=== PATIENT | female | born 1975 | race Caucasian/White ===

== ENCOUNTER 2017-06-30 19:45 | Emergency (ER) | payer MEDICAID ==
[~2017-06-30] VITALS: Ht 167.6 cm; Wt 70.2 kg
[~2017-06-30 19:45] MED LIST: ALB0.5UD NEB; ALBU18HF2 IH; ALBU8.5H8 INH; ATR0.5NEB NEB; AZIT-63 PO; AZIT250T PO; DIAZ-351 PO; DIAZ5TAB PO; DIL100C PO; FLO110IN IH; FLUO20CA39 PO; GUAI120015 PO; HYDR1TAB PO; IBUP-1986 PO; KEP500T PO; LORA1TAB PO; NAPR500T6 PO; OMEP20TA23 PO; ONDA8TAB6 PO; PHEN30CA PO; PHEN50TA PO; PRED10TA PO; PSEU-259 PO; PSEU120T55 PO; RISP1TAB13 PO; TIOT18CA7 IH; TRIH2TAB3 PO; ZOLP12.531 PO; fioricet PO
[2017-06-30] MEDS ORDERED: levetiracetam 250mg tablet PO ONE (21:00)
[2017-06-30 21:17] LABS: BASOPHILS # (AUTO) 0.1 X10'3 (0-0.2); BASOPHILS % (AUTO) 0.6 % (0-1); EOSINOPHILS # (AUTO) 0.3 X10'3 (0-0.9); EOSINOPHILS % (AUTO) 2.1 % (0-6); HEMATOCRIT 33.2 % (35.0-45.0); HEMOGLOBIN 11.4 g/dl (12.0-16.0); LYMPHOCYTES # (AUTO) 3.2 X10'3 (1.1-4.8); LYMPHOCYTES % (AUTO) 26.1 % (21-51); MEAN CORPUSCULAR HEMOGLOBIN 31.6 PG (27.0-31.0); MEAN CORPUSCULAR HGB CONC 34.2 % (33.0-36.5); MEAN CORPUSCULAR VOLUME 92.3 FL (78-98); MEAN PLATELET VOLUME 6.9 FL (7.4-10.4); MONOCYTES # (AUTO) 0.8 X10'3 (0-0.9); MONOCYTES % (AUTO) 6.7 % (2-12); NEUTROPHILS # (AUTO) 7.9 X10'3 (1.8-7.7); NEUTROPHILS % (AUTO) 64.5 % (42-75); PLATELET COUNT 411 X10'3 (140-440); RED CELL DISTRIBUTION WIDTH 14.9 % (11.5-14.5); WHITE BLOOD COUNT 12.3 X10'3 (4.5-11.0)
[2017-06-30 21:33] LABS: ALANINE AMINOTRANSFERASE 22 U/L (12-78); ALBUMIN 3.3 G/DL (3.4-5.0); ALBUMIN/GLOBULIN RATIO 1.1 (1.1-1.5); ALKALINE PHOSPHATASE 71 IU/L (46-116); ANION GAP 10 (8-16); ASPARTATE AMINO TRANSFERASE 17 U/L (10-37); BILIRUBIN,TOTAL 0.2 MG/DL (0.1-1.0); BLOOD UREA NITROGEN 12 MG/DL (7-18); BUN/CREATININE RATIO 11.2 (6.6-38.0); CALCIUM 8.4 MG/DL (8.5-10.1); CHLORIDE 102 MMOL/L (99-107); CREATININE 1.07 MG/DL (0.40-0.90); GLUCOSE 103 MG/DL (70-104); PHENYTOIN (DILANTIN) 5.3 UG/ML (10.0-20.0); POTASSIUM 3.6 MMOL/L (3.5-5.1); SODIUM 134 MMOL/L (135-145); TOTAL CARBON DIOXIDE 22.4 MMOL/L (24-32); TOTAL PROTEIN 6.2 G/DL (6.4-8.2); eGFR 56 ML/MIN
[2017-06-30] MEDS ORDERED: NORMAL SALINE IV ONE (21:55)
[2017-06-30] MEDS ORDERED: PHENYTOIN SOD IV ONE (21:55)
[2017-06-30] MEDS ORDERED: phenytoin sod ER 100mg capsule PO ONE (23:05)
[2017-06-30] MEDS ORDERED: PHEN100C4 PO (23:12)
[2017-06-30] MEDS ORDERED: KEP500T PO (23:12)
[2017-06-30 23:22] VITALS: BP 108/50
== END 2017-06-30 23:25 | disposition home or self-care (01) ==
LOC: ER 19:47
DX: G40.909 Epilepsy, unspecified, not intractable, without status epilepticus (principal); G43.909 Migraine, unspecified, not intractable, without status migrainosus; J44.9 Chronic obstructive pulmonary disease, unspecified; K21.9 Gastro-esophageal reflux disease without esophagitis; M19.90 Unspecified osteoarthritis, unspecified site; G89.29 Other chronic pain; F17.200 Nicotine dependence, unspecified, uncomplicated; Z87.11 Personal history of peptic ulcer disease; Z98.890 Other specified postprocedural states; Z90.49 Acquired absence of other specified parts of digestive tract; Z98.51 Tubal ligation status; Z79.899 Other long term (current) drug therapy; Z88.0 Allergy status to penicillin; Z88.6 Allergy status to analgesic agent
CPT/HCPCS: 36415; 80053; 80185; 85025; 99284; J1165; J7030

== ENCOUNTER 2017-07-03 14:12 | Emergency (ER) | payer MEDICAID ==
[~2017-07-03] VITALS: Ht 170.2 cm; Wt 70.5 kg
[~2017-07-03 14:12] MED LIST changes: +PHEN100C4 PO
[2017-07-03 16:00] VITALS: BP 113/80
== END 2017-07-03 16:29 | disposition home or self-care (01) ==
LOC: ER 14:12
DX: R56.9 Unspecified convulsions (principal); J44.9 Chronic obstructive pulmonary disease, unspecified; K21.9 Gastro-esophageal reflux disease without esophagitis; G89.29 Other chronic pain; F17.200 Nicotine dependence, unspecified, uncomplicated; G43.909 Migraine, unspecified, not intractable, without status migrainosus; Z90.49 Acquired absence of other specified parts of digestive tract; Z88.0 Allergy status to penicillin; Z88.5 Allergy status to narcotic agent
CPT/HCPCS: 36415; 70450; 80185; 99285

== ENCOUNTER → 2017-07-11 | Emergency (ER) | payer MEDICAID ==
[~2017-07-11] MED LIST changes: +ATI0.5T PO
== END | disposition left against medical advice (07) ==
LOC: ER 14:25
DX: R07.0 Pain in throat (principal); Z53.21 Procedure and treatment not carried out due to patient leaving prior to being seen by health care provider

== ENCOUNTER 2017-07-13 12:29 | Emergency (ER) | payer MEDICAID ==
[~2017-07-13] VITALS: Ht 170.2 cm; Wt 68.0 kg
[~2017-07-13 12:29] MED LIST changes: -ATI0.5T PO
[2017-07-13 14:10] VITALS: BP 148/91
[2017-07-13] MEDS ORDERED: ATI0.5T PO (14:11)
== END 2017-07-13 14:17 | disposition home or self-care (01) ==
LOC: ER 12:30
DX: G40.909 Epilepsy, unspecified, not intractable, without status epilepticus (principal); J44.9 Chronic obstructive pulmonary disease, unspecified; K21.9 Gastro-esophageal reflux disease without esophagitis; G89.29 Other chronic pain; Z90.49 Acquired absence of other specified parts of digestive tract; Z88.0 Allergy status to penicillin; Z88.5 Allergy status to narcotic agent; Z79.899 Other long term (current) drug therapy
CPT/HCPCS: 99283

== ENCOUNTER 2017-07-19 15:34 | Inpatient (IN) | payer MEDICAID ==
[~2017-07-19 15:34] MED LIST changes: +ATI0.5T PO
[2017-07-19 20:02] LABS: CLARITY,URINE CLEAR (Clear); COLOR,URINE YELLOW (Yellow); GLUCOSE, URINE NEGATIVE (Neg); KETONES,URINE NEGATIVE (Neg); LEUKOCYTE ESTERASE ,URINE MODERATE (Neg); NITRITES, URINE NEGATIVE (Neg); OCCULT BLOOD,URINE TRACE-INTACT (Neg); PH,URINE 5.5 (4.8-8.0); PROTEIN,URINE NEGATIVE (Neg); UROBILINOGEN,URINE 0.2 E.U/dL (0.2-1.0)
[2017-07-19 20:03] LABS: URINE HCG NEGATIVE (NEG)
[2017-07-19 20:07] LABS: UA COLLECTION TYPE CLN CATCH MIDSTREAM
[2017-07-19 20:08] LABS: BACTERIA,URINE FEW /HPF (Neg); RBC,URINE 0-2 /HPF (0-2); SQUAMOUS EPITHELIAL CELL,UR FEW /LPF (FEW); WBC CLUMPS,URINE FEW /HPF (NEGATIVE)
[2017-07-19 20:13] LABS: URINE AMPHETAMINE SCREEN NEGATIVE (Neg); URINE BARBITUATE SCREEN NEGATIVE (Neg); URINE BENZODIAZEPINES SCREEN NEGATIVE (Neg); URINE CANNABINOID SCREEN NEGATIVE (Neg); URINE COCAINE SCREEN NEGATIVE (Neg); URINE METHADONE SCREEN NEGATIVE (Neg); URINE OPIATE SCREEN NEGATIVE (Neg); URINE PHENCYCLIDINE SCREEN NEGATIVE (Neg)
[2017-07-19 20:29] LABS: BASOPHILS % (AUTO) 0.4 % (0-1); EOSINOPHILS # (AUTO) 0.1 X10'3 (0-0.9); EOSINOPHILS % (AUTO) 1.1 % (0-6); HEMATOCRIT 36.4 % (35.0-45.0); HEMOGLOBIN 12.4 g/dl (12.0-16.0); LYMPHOCYTES # (AUTO) 2.8 X10'3 (1.1-4.8); LYMPHOCYTES % (AUTO) 32.5 % (21-51); MEAN CORPUSCULAR HGB CONC 34.1 % (33.0-36.5); MEAN CORPUSCULAR VOLUME 93.7 FL (78-98); MEAN PLATELET VOLUME 7.1 FL (7.4-10.4); MONOCYTES # (AUTO) 0.6 X10'3 (0-0.9); MONOCYTES % (AUTO) 7.1 % (2-12); NEUTROPHILS # (AUTO) 5.2 X10'3 (1.8-7.7); NEUTROPHILS % (AUTO) 58.9 % (42-75); PLATELET COUNT 418 X10'3 (140-440); RED BLOOD COUNT 3.88 X10'6 (4.20-5.60); RED CELL DISTRIBUTION WIDTH 15.3 % (11.5-14.5); WHITE BLOOD COUNT 8.8 X10'3 (4.5-11.0)
[2017-07-19 20:46] LABS: ALANINE AMINOTRANSFERASE 30 U/L (12-78); ALBUMIN 3.4 G/DL (3.4-5.0); ALBUMIN/GLOBULIN RATIO 1.1 (1.1-1.5); ALKALINE PHOSPHATASE 74 IU/L (46-116); ANION GAP 9 (8-16); ASPARTATE AMINO TRANSFERASE 16 U/L (10-37); BILIRUBIN,TOTAL 0.2 MG/DL (0.1-1.0); BLOOD UREA NITROGEN 18 MG/DL (7-18); CALCIUM 9.8 MG/DL (8.5-10.1); CHLORIDE 105 MMOL/L (99-107); CREATININE 0.82 MG/DL (0.40-0.90); GLUCOSE 100 MG/DL (70-104); PHENYTOIN (DILANTIN) 20.8 UG/ML (10.0-20.0); POTASSIUM 3.8 MMOL/L (3.5-5.1); SODIUM 139 MMOL/L (135-145); TOTAL CARBON DIOXIDE 24.8 MMOL/L (24-32); TOTAL PROTEIN 6.6 G/DL (6.4-8.2); eGFR 76 ML/MIN
[2017-07-19] MEDS ORDERED: CefTRIAXone/D5W-Rocephin 1gm 50 ML IV STA (20:50)
[2017-07-19] MEDS ORDERED: KEP500T PO (20:59)
[2017-07-19] MEDS ORDERED: OMEP40CA37 PO (20:59)
[2017-07-19] MEDS ORDERED: PHEN100C4 PO (20:59)
[2017-07-19] MEDS ORDERED: CLON-529 PO (20:59)
[2017-07-19] MEDS ORDERED: AMLO10TA PO (21:00)
[2017-07-19] MEDS ORDERED: FLUO20CA39 PO (21:00)
[2017-07-19] MEDS ORDERED: acetaminophen 325mg tablet PO ONE (21:35)
[2017-07-19] MEDS ORDERED: ibuprofen 200mg tablet PO ONE (23:55)
[2017-07-20] MEDS ORDERED: levetiracetam 250mg tablet PO ONE (00:45)
[2017-07-20] MEDS ORDERED: potassium Cl 20 mEq SR tablet PO PRN ×2 (00:50)
[2017-07-20] MEDS ORDERED: magnesium 4gm in 100ml NS 100 ML IV PRN (00:50)
[2017-07-20] MEDS ORDERED: ondansetron/PF 4mg/2ml inj IV PRN (00:50)
[2017-07-20] MEDS ORDERED: acetaminophen 325mg tablet PO PRN (00:50)
[2017-07-20] MEDS ORDERED: magnesium hydroxide 30ml (MOM) UD suspension PO PRN (00:50)
[2017-07-20] MEDS ORDERED: magnesium 2GM in 50ml NS 50 ML IV PRN (00:50)
[2017-07-20] MEDS ORDERED: mag hydrox/Alum hydrox/simeth 30ml oral suspension PO PRN (00:50)
[2017-07-20] MEDS ORDERED: magnesium Cl slow-release 64mg tablet PO PRN (00:50)
[2017-07-20] MEDS ORDERED: potassium Cl 40MEQ/NS 500ml 500 ML IV PRN ×2 (00:50)
[2017-07-20] MEDS ORDERED: ipratropium/albuterol 3ml nebule NEB ONE (01:10)
[2017-07-20] MEDS: normal saline 1000ml 1,000 ML IV SCH ×3 (03:41→23:31)
[2017-07-20] MEDS: pantoprazole 40mg Tablet.DR PO SCH (07:43)
[2017-07-20 08:00] VITALS: BP 160/81
[2017-07-20] MEDS ORDERED: non-formulary drug (Omeprazole (Prilosec) 1 CAP) PO SCH (08:00)
[2017-07-20] MEDS: K and/or MAG REPLACEMENT MC SCH (08:00)
[2017-07-20] MEDS: CefTRIAXone 2gm/NS 100ml IVPB 100 ML IV SCH (08:36)
[2017-07-20] MEDS: heparin, porcine 5000 units/ml vial SQ SCH ×2 (08:38→19:20)
[2017-07-20] MEDS: cloNIDine 0.1 mg tablet PO SCH ×3 (08:40→20:16)
[2017-07-20] MEDS: amLODIPine 5mg tablet PO SCH (08:40)
[2017-07-20] MEDS: levetiracetam 250mg tablet PO SCH ×2 (08:41→19:19)
[2017-07-20] MEDS: FLUoxetine 20mg capsule PO SCH (08:41)
[2017-07-20 10:00] VITALS: BP 133/86
[2017-07-20] MEDS: HYDROcodone/acetaminophen 5mg/325mg tablet PO PRN ×3 (14:05→23:04)
[2017-07-20 18:00] VITALS: BP 136/84
[2017-07-20] MEDS: lactobacillus rhamnosus 10,000 MMU CELLS/CAPSULE PO SCH (19:19)
[2017-07-20 22:00] VITALS: BP 139/67
[2017-07-20] MEDS ORDERED: diphenhydrAMINE 25mg capsule PO PRN (22:50)
[2017-07-21] MEDS: normal saline 1000ml 1,000 ML IV SCH (01:45)
[2017-07-21] MEDS: HYDROcodone/acetaminophen 5mg/325mg tablet PO PRN ×3 (03:18→11:55)
[2017-07-21 05:55] LABS: BASOPHILS % (AUTO) 0.3 % (0-1); EOSINOPHILS # (AUTO) 0.2 X10'3 (0-0.9); HEMATOCRIT 34.4 % (35.0-45.0); HEMOGLOBIN 11.6 g/dl (12.0-16.0); LYMPHOCYTES # (AUTO) 2.9 X10'3 (1.1-4.8); LYMPHOCYTES % (AUTO) 35.9 % (21-51); MEAN CORPUSCULAR HEMOGLOBIN 31.9 PG (27.0-31.0); MEAN CORPUSCULAR HGB CONC 33.8 % (33.0-36.5); MEAN CORPUSCULAR VOLUME 94.4 FL (78-98); MEAN PLATELET VOLUME 7.9 FL (7.4-10.4); MONOCYTES # (AUTO) 0.6 X10'3 (0-0.9); MONOCYTES % (AUTO) 7.4 % (2-12); NEUTROPHILS # (AUTO) 4.4 X10'3 (1.8-7.7); NEUTROPHILS % (AUTO) 54.4 % (42-75); PLATELET COUNT 378 X10'3 (140-440); RED BLOOD COUNT 3.65 X10'6 (4.20-5.60); RED CELL DISTRIBUTION WIDTH 14.6 % (11.5-14.5)
[2017-07-21 06:07] LABS: ALBUMIN 2.9 G/DL (3.4-5.0); ANION GAP 8 (8-16); BLOOD UREA NITROGEN 17 MG/DL (7-18); BUN/CREATININE RATIO 23.3 (6.6-38.0); CALCIUM 8.8 MG/DL (8.5-10.1); CHLORIDE 107 MMOL/L (99-107); CREATININE 0.73 MG/DL (0.40-0.90); GLUCOSE 84 MG/DL (70-104); MAGNESIUM 1.7 MG/DL (1.5-2.4); POTASSIUM 3.9 MMOL/L (3.5-5.1); SODIUM 141 MMOL/L (135-145); TOTAL CARBON DIOXIDE 25.7 MMOL/L (24-32); eGFR 87 ML/MIN
[2017-07-21] MEDS: CefTRIAXone 2gm/NS 100ml IVPB 100 ML IV SCH (07:52)
[2017-07-21] MEDS: heparin, porcine 5000 units/ml vial SQ SCH (07:53)
[2017-07-21] MEDS: pantoprazole 40mg Tablet.DR PO SCH (07:54)
[2017-07-21] MEDS: lactobacillus rhamnosus 10,000 MMU CELLS/CAPSULE PO SCH (07:54)
[2017-07-21] MEDS: amLODIPine 5mg tablet PO SCH (07:55)
[2017-07-21] MEDS: FLUoxetine 20mg capsule PO SCH (07:55)
[2017-07-21] MEDS: cloNIDine 0.1 mg tablet PO SCH (07:56)
[2017-07-21] MEDS: levetiracetam 250mg tablet PO SCH (07:57)
[2017-07-21] MEDS: K and/or MAG REPLACEMENT MC SCH (08:00)
[2017-07-21 10:00] VITALS: BP 136/79
[2017-07-21] MEDS ORDERED: METR250T4 PO (10:20)
[2017-07-21] MEDS ORDERED: PHEN100C4 PO (10:20)
[2017-07-21] MEDS ORDERED: CEFU250S PO (10:22)
== END 2017-07-21 12:00 | disposition home or self-care (01) | DRG 53 ==
LOC: ER 15:35 → ED HOLD 07-20 00:49 → ORTHO 4S 07-20 07:55
PROVIDERS: ADMIT Internal Medicine; ATTEND Internal Medicine
DX: G40.909 Epilepsy, unspecified, not intractable, without status epilepticus (principal); F20.9 Schizophrenia, unspecified; N39.0 Urinary tract infection, site not specified; F17.210 Nicotine dependence, cigarettes, uncomplicated; F31.9 Bipolar disorder, unspecified; G47.00 Insomnia, unspecified; G89.29 Other chronic pain; K21.9 Gastro-esophageal reflux disease without esophagitis; M19.90 Unspecified osteoarthritis, unspecified site; M54.9 Dorsalgia, unspecified; J02.9 Acute pharyngitis, unspecified; J44.9 Chronic obstructive pulmonary disease, unspecified; F41.9 Anxiety disorder, unspecified; G43.909 Migraine, unspecified, not intractable, without status migrainosus; Z90.49 Acquired absence of other specified parts of digestive tract; Z98.891 History of uterine scar from previous surgery; Z98.51 Tubal ligation status; Z88.0 Allergy status to penicillin; Z88.1 Allergy status to other antibiotic agents; Z88.8 Allergy status to other drugs, medicaments and biological substances; Z88.6 Allergy status to analgesic agent; Z79.899 Other long term (current) drug therapy; Z87.11 Personal history of peptic ulcer disease
CPT/HCPCS: 36415; 70450; 80048; 80053; 80185; 80305; 81001; 81025; 83605; 83735; 85025; 87040; 87070; 87088; 94640; 94760; 95816; 96365; 99285; J0696; J1644; J7030; Q0163

== ENCOUNTER 2017-07-27 14:04 | Emergency (ER) | payer BC, MEDICAID ==
[~2017-07-27] VITALS: Ht 170.2 cm; Wt 71.1 kg
[~2017-07-27 14:04] MED LIST changes: -ALB0.5UD NEB; -ALBU18HF2 IH; -ALBU8.5H8 INH; +AMLO10TA PO; -ATI0.5T PO; -ATR0.5NEB NEB; -AZIT-63 PO; -AZIT250T PO; +CEFU250S PO; +CLON-529 PO; -DIAZ-351 PO; -DIAZ5TAB PO; -DIL100C PO; -FLO110IN IH; -GUAI120015 PO; -HYDR1TAB PO; -IBUP-1986 PO; -LORA1TAB PO; +METR250T4 PO; -NAPR500T6 PO; -OMEP20TA23 PO; -ONDA8TAB6 PO; -PHEN30CA PO; -PHEN50TA PO; -PRED10TA PO; -PSEU-259 PO; -PSEU120T55 PO; -RISP1TAB13 PO; -TIOT18CA7 IH; -TRIH2TAB3 PO; -ZOLP12.531 PO; -fioricet PO
[2017-07-27 14:06] VITALS: BP 157/97
[2017-07-27] MEDS ORDERED: FLUO40CA10 PO (14:15)
== END 2017-07-27 14:20 | disposition home or self-care (01) ==
LOC: ER 14:04
DX: F32.9 Major depressive disorder, single episode, unspecified (principal); Z76.0 Encounter for issue of repeat prescription; Z88.0 Allergy status to penicillin; Z79.899 Other long term (current) drug therapy; J44.9 Chronic obstructive pulmonary disease, unspecified; K21.9 Gastro-esophageal reflux disease without esophagitis; G89.29 Other chronic pain
CPT/HCPCS: 99283